=== PATIENT | female | born 2000 | race Two or more races ===

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

== ENCOUNTER 2019-03-15 16:54 | Emergency (ER) | payer OTHER ==
[~2019-03-15] VITALS: Ht 172.7 cm; Wt 70.3 kg
[~2019-03-15 16:54] MED LIST changes: +IBUPROFEN800 MG PO
== END 2019-03-15 22:26 | disposition home or self-care (01) ==
LOC: ER 16:54
DX: G44.209 Tension-type headache, unspecified, not intractable (principal)

== ENCOUNTER 2019-08-14 17:20 | Emergency (ER) | payer OTHER ==
[~2019-08-14] VITALS: Ht 172.7 cm; Wt 65.8 kg
== END 2019-08-14 20:50 | disposition home or self-care (01) ==
LOC: ER 17:20
DX: J11.1 Influenza due to unidentified influenza virus with other respiratory manifestations (principal); B96.0 Mycoplasma pneumoniae [M. pneumoniae] as the cause of diseases classified elsewhere

== ENCOUNTER 2020-01-25 22:30 | Emergency (ER) | payer OTHER ==
[~2020-01-25] VITALS: Ht 175.3 cm; Wt 68.0 kg
== END 2020-01-26 00:03 | disposition home or self-care (01) ==
LOC: ER 22:30
DX: G43.809 Other migraine, not intractable, without status migrainosus (principal); H66.92 Otitis media, unspecified, left ear

== ENCOUNTER 2020-05-04 11:06 | Emergency (ER) | payer OTHER ==
[~2020-05-04] VITALS: Ht 172.7 cm; Wt 68.0 kg
== END 2020-05-04 15:13 | disposition home or self-care (01) ==
LOC: ER 11:06
DX: M79.662 Pain in left lower leg (principal)

== ENCOUNTER 2020-05-07 20:30 | Emergency (ER) | payer OTHER ==
[~2020-05-07] VITALS: Ht 172.7 cm; Wt 68.0 kg
== END 2020-05-07 22:56 | disposition home or self-care (01) ==
LOC: ER 20:30
DX: M79.18 Myalgia, other site (principal); T50.905A Adverse effect of unspecified drugs, medicaments and biological substances, initial encounter

== ENCOUNTER 2024-06-01 01:34 | Emergency (ER) | payer OTHER ==
[~2024-06-01] VITALS: Ht 175.3 cm; Wt 88.5 kg
[2024-06-01] MEDS ORDERED: KETOROLAC TROMETHAMINE 60 MG VIAL IM STA (02:34)
[2024-06-01] MEDS ORDERED: ORPHENADRINE CITRATE 30 MG/ML AMPUL IM STA (02:34)
[2024-06-01] MEDS ORDERED: ORPHENADRINE CITRATE 30 MG/ML AMPUL ONE (02:40)
[2024-06-01] MEDS ORDERED: KETOROLAC TROMETHAMINE 60 MG VIAL IM ONE (02:41)
[2024-06-01] MEDS ORDERED: NORFLEX100MG PO (02:52)
[2024-06-01] MEDS ORDERED: KETO10TA2 PO (02:52)
== END 2024-06-01 02:59 ==
LOC: ER 01:36
DX: M54.89 Other dorsalgia (principal)